=== PATIENT | male | born 1995 | race Caucasian/White ===

== ENCOUNTER 2017-02-20 18:59 | Emergency (ER) | payer OTHER ==
[~2017-02-20] VITALS: Ht 182.9 cm; Wt 100.0 kg
[2017-02-20 19:02] VITALS: BP 168/110; PULSE 68; RESP 16; TEMP 98.4; O2SAT 100
[2017-02-20] MEDS ORDERED: FLUTI220I INH (19:25)
[2017-02-20] MEDS ORDERED: EPIN0.3A2 (19:25)
[2017-02-20] MEDS ORDERED: ALBUAER3 INH (19:25)
[2017-02-20] MEDS ORDERED: PRIL20TA2 PO (19:25)
[2017-02-20] MEDS ORDERED: MONT10TA2 PO (19:25)
--- NOTE | 2017-02-20 19:25 | PD ---
HPI . allergic reaction to peas Chief Complaint: Allergic/Adverse Reaction Time Seen by Provider: 19:25 Travel History International Travel<30 days: No Contact w/Intl Traveler<30days: No Traveled to known affect area: No History of Present Illness HPI 21-year-old male with history of asthma and allergies here with complaints of possible allergic reaction to peas. Patient was having some type of meat ball and thinks that the piece inside of it may have caused him a slight allergic reaction. He reports that after eating the meatball he developed some ear itching and slight lip swelling. His mother immediately gave him 2 Benadryl and he started to feel somewhat better, but thinks that his throat mucous swelling. They decided to come to the emergency permit for further evaluation. Patient did not believe it was severe enough to use his EpiPen, which he does carry on him. At this present time, patient denies any chest pain, shortness of breath, itching, rash or other symptoms. He is comfortable and has no complaints He is accompanied by both parents. PFSH Past Medical History Respiratory: Yes (ASTHMA) Social History Tobacco Use: No Allergies-Medications (Allergen,Severity, Reaction): Coded Allergies: PEANUTS (Verified Allergy, Severe, Anaphylaxis, 02/20/17) Nut Tree (Verified Allergy, Unknown, 02/20/17) Pea (Verified Allergy, Unknown, 02/20/17) Reported Meds & Prescriptions Reported Meds & Active Scripts Active Pepcid (Famotidine) 20 Mg Tab 20 Mg PO BID 3 Days Prednisone 20 Mg Tab 20 Mg PO BID 3 Days Reported Epipen (Epinephrine) 0.3 Mg/0.3 Ml Auto.injct Proair Hfa 8.5 GM Inh (Albuterol Sulfate) 90 Mcg/Act Aer 4 Puff INH Q4-6H PRN 108 mcg/actuation Singulair (Montelukast Sodium) 10 Mg Tab 10 Mg PO HS Prilosec (Omeprazole Magnesium) 20 Mg Tab 40 Mg PO BID Flovent Hfa 12 GM Inh (Fluticasone Propionate) 220 Mcg/Act Inh 4 Puff INH BID Use daily at the same time. Review of Systems General / Constitutional: No: Fever Eyes: No: Visual changes HENT: No: Headaches Cardiovascular: No: Chest Pain or Discomfort Respiratory: No: Shortness of Breath Gastrointestinal: No: Abdominal Pain Genitourinary: No: Dysuria Musculoskeletal: No: Pain Skin: No Rash Neurologic: No: Weakness Psychiatric: No: Depression Endocrine: No: Polydipsia Hematologic/Lymphatic: No: Easy Bruising Physical Exam Narrative GENERAL: AAO x 3, no acute distress, Well-nourished, well-developed patient. SKIN: Warm and dry. No visible rashes or bruising. HEAD: Normocephalic and atraumatic. EYES: No scleral icterus. No injection or drainage. EOM intact, PERRLA ENT: No nasal drainage noted. Mucous membranes pink. Airway patent. mild posterior pharynx erythema and slight edema. NECK: Supple, trachea midline. No JVD. no lymphadenopathy CARDIOVASCULAR: Regular rate and rhythm without murmurs, gallops, or rubs. RESPIRATORY: Breath sounds equal bilaterally. No accessory muscle use. No rhonchi or rales. GASTROINTESTINAL: Abdomen soft, non-tender, nondistended. EXTREMITIES: No cyanosis or edema. BACK: Nontender without obvious deformity. No CVA tenderness. 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 Data Data Last Documented VS Vital Signs Date Time Temp Pulse Resp B/P Pulse Ox O2 Delivery O2 Flow Rate FiO2 02/20/17 19:26 57 18 148/101 99 Room Air 02/20/17 19:02 98.4 Orders Methylprednisolone So Succ Inj (Solumedr (02/20/17 19:45) MDM Medical Decision Making Medical Screen Exam Complete: Yes Emergency Medical Condition: Yes Medical Record Reviewed: Yes Differential Diagnosis allergic reaction, less likely severe anaphylaxis, rash Narrative Course 21 yr old male here with possible allergic reaction. He already had two benadryl. He is not having a severe reaction. This is very mild. I discussed case with Dr. Elaine. We will provide IM solumedrol. He will be monitored for 1 hour and if stable I will discharge him home with prednisone and pepcid. 2035: patient feels good, no itching, rash, sob, etc. I requested bp check prior to discharge: Patient verbalized understanding of instructions, questions were answered, and thanked me for their care. I advised them if their condition worsens, please return to the nearest emergency room for further care. Diagnosis Primary Impression: Allergic reaction Qualified Code: T78.40XA - Allergic reaction, initial encounter Patient Instructions: General Instructions Additional Instructions: Please return to emergency department if your symptoms return or worsen. Follow up with your primary care provider. Take medications as prescribed. Med/Other Pt SpecificInfo: Prescription(s) given Scripts Famotidine (Pepcid)20 Mg Tab20 Mg PO BID 3 Days Ref 0 Prov:Chester Teran MD 02/20/17 Prednisone 20 Mg Tab20 Mg PO BID 3 Days Prov:Chester Teran MD 02/20/17 Disposition: 01 DISCHARGE HOME Condition: Stable Maryann Driscoll Feb 20, 2017 19:25
[2017-02-20 19:26] VITALS: BP 148/101; PULSE 57; RESP 18; O2SAT 99
[2017-02-20] MEDS ORDERED: FAMO1TAB37 PO (19:39)
[2017-02-20] MEDS ORDERED: PRED20 PO (19:39)
[2017-02-20] MEDS ORDERED: methylPREDNISolone SOD SUCC 125 MG/2 ML VIAL IM ONE (19:45)
[2017-02-20 22:49] VITALS: BP 125/72; PULSE 65; RESP 16; O2SAT 100
== END 2017-02-20 22:49 | disposition home or self-care (01) ==
LOC: NEPC 18:59
DX: T78.40XA Allergy, unspecified, initial encounter (principal); Z87.09 Personal history of other diseases of the respiratory system
CPT/HCPCS: 96372; 99284; J2930